=== PATIENT | female | born 1995 | race Caucasian/White ===

== ENCOUNTER 2022-07-09 16:11 | Emergency (ER) | payer OTHER, SELFPAY ==
--- NOTE | ~2022-07-09 | CT_ITS ---
EXAMINATION: CT abdomen pelvis w con DATE: 07/09/2022 17:53 INDICATION: abd pain TECHNIQUE: Computed tomography (CT) of the abdomen and pelvis was performed with 100 mL Omnipaque-350 intravenous contrast. Automated exposure control and iterative reconstruction technique were employe d. The dose-length product was 196.99 mGy-cm. COMPARISON: None. FINDINGS: Lower thorax: Unremarkable Liver: Normal. Biliary/Gallbladder: Gallbladder is normal. No bile duct dilation. Pancreas: No mass or duct dilation. Spleen: Normal. Adrenals:No mass. Kidneys: No mass, stone, or hydronephrosis. The distal ureters were incompletely visualized but there are no calcifications in their expected pathways. GI tract: Distal esophageal and gastric wall edema. No small or large bowel dilation. Normal appendix . Mesentery/Peritoneum: No ascites, mass, or free air. Retroperitoneum: No mass. Pelvis: Pelvic organs are within normal limits. 2.6 cm left ovarian cyst. Soft Tissues: Soft tissues and body wall unremarkable. Bones: No acute osseous finding. IMPRESSION: Esophagitis/gastritis. Otherwise, no acute abdominopelvic process detected. Reviewed, dictated and finalized at location [facility]
--- NOTE | ~2022-07-09 | US_ITS ---
EXAMINATION: US pelvic complete w TV DATE: 07/09/2022 20:04 INDICATION: Lower abd pain TECHNIQUE: Multiple transabdominal sonographic images of the pelvis were obtained. Patient declined t ransvaginal examination. COMPARISON: CT abdomen pelvis, same date. FINDINGS: Uterus: 8.3 x 4.3 x 6.3 cm. Suggestion of arcuate uterus morphology. Endometrial complex measures 19 mm. Right Ovary: 2.4 x 1.6 x 2.1 cm. Vascular flow is present. Left Ovary: 5.0 x 3.3 x 3.8 cm. Vascular flow is present. 2.0 cm simple left ovarian cyst. There is no free fluid in the pelvis. IMPRESSION: Endometrial thickening which may be normal for this patient, or related to endometrial hyperplasia, e ndometrial polyp, and other entities. Consider gynecology referral and short-term pelvic ultrasound f ollow-up early in the menstrual cycle and/or sonohysterography. Simple left ovarian cyst. Otherwise u nremarkable pelvic ultrasound findings. Reviewed, dictated and finalized at location [facility]. [facility] [employer] OPERATOR IMPRESSION: Endometrial thickening which may be normal for this patient, or related to endo metrial hyperplasia, endometrial polyp, and other entities. Consider gynecology referral and short-term pelvic ultrasound follow-up early in the menstrual cyc le and/or sonohysterography. Simple left ovarian cyst. Otherwise unremarkable p elvic ultrasound findings.
[2022-07-09 16:23] VITALS: BP 127/83; PULSE 112; RESP 16; TEMP 36.7; O2SAT 99
[2022-07-09 16:36] LABS: Basophils Percent Auto 0.2 % (0.2-1.2); Hematocrit 38.9 % (37.0-47.0); Immature Granulocyte Absolute 0.08 K/mm3 (0.00-0.031); Immature Granulocyte Percent A 0.4 % (0-0.5); Lymphocytes Absolute Auto 0.64 K/mm3 (0.9-3.2); Lymphocytes Percent Auto 3.6 % (18.3-44.2); Mean Corpuscular HGB Conc 33.4 g/dl (32-36); Mean Corpuscular Hemoglobin 30.6 pg (26-34); Mean Corpuscular Volume 91.5 fl (80-100); Mean Platelet Volume 9.6 fl (7.4-10.4); Monocytes Absolute Auto 0.9 K/mm3 (0.1-0.6); Monocytes Percent Auto 5.2 % (2.6-8.5); Neutrophils Absolute Auto 16.2 K/mm3 (1.3-6.7); Neutrophils Percent Auto 90.6 % (45.5-73.1); Platelet Count Result 215 k/mm3 (150-375); Red Blood Count 4.25 M/mm3 (4.2-5.4); Red Cell Distribution Width 13.2 % (11.5-14.5); White Blood Count 17.9 K/mm3 (4.5-10.0)
[2022-07-09 16:46] LABS: Alanine Aminotransferase 21 U/L (6-35); Albumin Level 4.8 g/dL (3.5-5.1); Alkaline Phosphatase 59 U/L (38-126); Anion Gap 7 mmol/L (8-16); Aspartate Amino Transferase 26 U/L (14-36); Bilirubin,Total 1.7 mg/dL (0.2-1.3); Blood Urea Nitrogen 11 mg/dL (7-17); Calcium 9.3 mg/dL (8.4-10.2); Carbon Dioxide 26 mmol/L (22-30); Chloride 102 mmol/L (98-107); Estimated CRCL calculation 94 ml/min; Estimated Glomerular Filt Rate > 60; Glucose 129 mg/dL (65-110); Lipase 47 U/L (23-300); Potassium 3.4 mmol/L (3.4-5.0); Sodium 135 mmol/L (137-145)
[2022-07-09 16:55] LABS: Add Urine Microscopic? YES; Appearance Urine Clear (Clear); Bilirubin Urine Negative (Negative); Blood Urine Negative (Negative); Color Urine Yellow (Yellow); Glucose Urine UA Negative (Negative); Ketones Urine Trace mg/dL (Negative); Leukocyte Esterase Ur Negative LEU/UL (Negative); Nitrate Urine Negative (Negative); Protein Urine Negative (Negative); Specific Grav Ur 1.015 (1.001-1.035); Urobilinogen Urine 0.2 mg/dL (<2.0)
[2022-07-09 17:05] LABS: Bacteria Urine Trace /hpf; Mucus Urine Rare /lpf; RBC Urine 0-2 /hpf (0-2); Squamous Epithelial Cell Urine Few /hpf (Few)
--- NOTE | 2022-07-09 17:21 | ED.ABDPAIN ---
HPI - Abdominal Pain General Chief Complaint: Abdominal Pain <Chava Núñez DO - Last Filed: 07/09/22 19:00> Stated Complaint: abdominal pain <Chava Núñez DO - Last Filed: 07/09/22 19:00> Time Seen by Provider: 07/09/22 17:16 <Chava Núñez DO - Last Filed: 07/09/22 19:00> Source: RN notes reviewed <Chava Núñez DO - Last Filed: 07/09/22 19:00> History of Present Illness HPI narrative: Patient presents emergency department from home for abdominal pain. Patient states symptoms began last night. The pain is located in the right lower quadrant does not radiate described as sharp and stabbing in nature. Patient states the pain is worse when she hit bumps in the car she states nothing makes the pain better. She states she did take ibuprofen at 230 this morning with minimal relief. She states she has had a low-grade fever up to 100 degrees at home she denies any nausea vomiting diarrhea dysuria or any other symptoms <Chava Núñez DO - Last Filed: 07/09/22 19:00> Related Data Allergies/Adverse Reactions: Allergies Allergy/AdvReac Type Severity Reaction Status Date / Time No Known Allergies Allergy Verified 07/09/22 17:34 <Chava Núñez DO - Last Filed: 07/09/22 19:00> Review of Systems Review of Systems: Gen.: Denies fevers or chills ENT: Denies congestion Respiratory: Denies shortness of breath or cough CV: Denies chest pain or palpitations GI: See HPI Musculoskeletal: Denies back pain or muscle pain Neuro: Denies numbness, tingling, weakness or focal weakness Skin: Denies rash Except as documented, all other systems reviewed and negative <DO Ethan Rueda Last Filed: 07/09/22 19:00> [facility] Past Medical History Medical History: Medical History (Updated 07/09/22 @ 19:00 by Chava Núñez DO) Patient denies significant medical history <Chava Núñez DO - Last Filed: 07/09/22 19:00> Social History Social History: Social History (Updated 07/09/22 @ 17:22 by TA Rueda Smoking status: Never smoker <Chava Núñez DO - Last Filed: 07/09/22 19:00> Exam Narrative: APPEARANCE: No acute distress, nontoxic, resting in bed EYES: EOMI HEENT: Normocephalic, atraumatic, OMM RESPIRATORY: No respiratory distress Clear to auscultation bilaterally with no rhonchi wheezing or rales. CARDIOVASCULAR: Regular rate and rhythm without murmurs rubs or gallops. ABDOMINAL: Soft, soft nondistended tender palpation right lower quadrant no tenderness right upper quadrant and left upper quadrant left lower quadrant no rebound or guarding MUSCULOSKELETAl: Moves all extremities. No clubbing, cyanosis or edema. NEURO: Awake and alert. Following commands, speech normal, no focal deficits SKIN:: Warm, dry. No rashes lesions or abrasions PSYCHIATRIC: Normal affect/mood, <Chava Núñez DO - Last Filed: 07/09/22 19:00> Course Course Emergency Course: Patient states she is not sexually active states that her menstrual cycle is post be started in the next several days she denies any vaginal bleeding or discharge I discussed with the patient with her pain and abnormal CT doing a pelvic exam.. The patient did have some concerns about the exam as she states that any type of speculum exam is very painful to her but she is supposed be seeing her [facility] tomorrow but is willing to attempt the exam I did attempted perform an exam and there was pain with any attempt at speculum exam also attempted a bimanual exam which is also very painful to the patient states that this is normal for her I did not proceed any further with exam secondary to the pain Care turned over to Dr. Clements at shift change awaiting ultrasound results and further disposition <Chava Núñez DO - Last Filed: 07/09/22 19:00> ANNUAL GIVING DIRECTOR/PA Physician Supervision 19:00 - Care assumed from Dr. Núñez. The patient states her pain is better controlled. She is pending ultras
[2022-07-09] MEDS: SODIUM CHLORIDE 0.9% IV 1,000 ML 999 ML IV CONT (17:35)
[2022-07-09] MEDS: KETOROLAC 30 MG/ML VIAL (*BKC) IV PUSH (17:36)
[2022-07-09 17:53] VITALS: O2SAT 100
[2022-07-09 17:54] VITALS: BP 122/98; RESP 18; O2SAT 100
[2022-07-09 18:01] VITALS: BP 118/93; RESP 18; O2SAT 100
[2022-07-09 20:16] VITALS: BP 108/71; PULSE 70; RESP 18; O2SAT 100
[2022-07-09 20:44] VITALS: BP 111/74; PULSE 71; RESP 16; O2SAT 98
== END 2022-07-09 20:45 | disposition home or self-care (01) ==
PROVIDERS: Emergency Medicine; Emergency Provider Preventive Medicine Aerospace Medicine
DX: R10.31 Right lower quadrant pain (principal); K29.70 Gastritis, unspecified, without bleeding; K20.90 Esophagitis, unspecified without bleeding; R93.89 Abnormal findings on diagnostic imaging of other specified body structures; N83.202 Unspecified ovarian cyst, left side
CPT/HCPCS: 36415; 74177; 76830; 76856; 80053; 81001; 81025; 83690; 85025; 96361; 96374; 99284; J1885; J7030; Q9967

== ENCOUNTER 2023-03-02 08:02 | Emergency (ER) | payer OTHER, SELFPAY ==
[2023-03-02 08:21] VITALS: BP 120/70; PULSE 85; RESP 18; TEMP 36.6; O2SAT 100
--- NOTE | 2023-03-02 08:32 | ED.SKABFB ---
HPI - Skin/Abscess/Foreign Bdy General Chief complaint: Animal Bite Stated complaint: cat bite Time Seen by Provider: 03/02/23 08:27 Source: patient and RN notes reviewed Mode of arrival: ambulatory Limitations: no limitations History of Present Illness HPI narrative: Patient presents today with a cat bite to her left forearm. She was bit by her own cat while at the vet's office 2 days ago. Cat is up-to-date on vaccines. Patient is unsure of the last date of her tetanus vaccine. Patient reports some mild tenderness surrounding the puncture wounds. States her symptoms have improved since onset. Related Data Allergies Allergy/AdvReac Type Severity Reaction Status Date / Time No Known Allergies Allergy Verified 03/02/23 08:24 Review of Systems Review of Systems: CONSTITUTIONAL: Denies body aches, fever, chills, or sweats. EYES: Denies visual changes, redness, or discharge. ENT: Denies rhinorrhea, congestion, sore throat, or otalgia. CARDIOVASCULAR: Denies chest pain, palpitations, or edema. RESPIRATORY: Denies cough or dyspnea. GASTROINTESTINAL: Denies abdominal pain, nausea, vomiting, or diarrhea. GENITOURINARY: Denies dysuria or hematuria. SKIN: Denies rash, itching. + cat bite MUSCULOSKELETAL: Denies back pain, joint pain, or myalgia. NEUROLOGIC: Denies headache, numbness, tingling, or weakness. PSYCH: Denies depression or anxiety. [facility] Past Medical History Medical History Patient denies significant medical history Social History Social History Smoking status: Never smoker Comments At time of signature, I have reviewed and agree with nursing past medical, surgical, social and family history unless otherwise noted. Please see nursing chart for further information. There is no relevant family history pertinent to the presenting complaint Exam Narrative: GENERAL: Well-appearing, well-nourished, and in no acute distress. HEAD: Normocephalic, atraumatic. EYES: EOMI. No redness or drainage. Conjunctivae normal. ENT: Mucous membranes pink and moist. NECK: Normal AROM. CHEST: No respiratory distress. EXTREMITIES: Normal range of motion. No edema. SKIN: Warm, dry, no rash. Capillary refill normal. Normal skin turgor. Two small puncture wounds to the left anterior forearm that are surrounded by very mild erythema. They are mildly tender to palpation. No induration or fluctuance noted. Distal sensation intact. Capillary refill. NEURO: No focal deficits. Alert and oriented x3. Gait steady. PSYCH: Normal affect. No signs of depression or anxiety. Course Course Level of Care: Express Care Visit Vital Signs Vital signs: Vital Signs Temperature 97.9 F 03/02/23 08:21 Pulse Rate 85 03/02/23 08:21 Respiratory Rate 18 03/02/23 08:21 Blood Pressure 120/70 03/02/23 08:21 Pulse Oximetry 100 03/02/23 08:21 Oxygen Delivery Room Air 03/02/23 08:21 Temperature 97.9 F 03/02/23 08:21 Pulse Rate 85 03/02/23 08:21 Respiratory Rate 18 03/02/23 08:21 Blood Pressure 120/70 03/02/23 08:21 Pulse Oximetry 100 03/02/23 08:21 Oxygen Delivery Room Air 03/02/23 08:21 Reviewed MDM - Skin/Abscess/Foreign Bdy MDM Narrative Medical decision making narrative: Patient's tetanus vaccine will be updated today. Will place her on a short course of Augmentin to ensure the symptoms do not worsen. Patient agrees with plan. Anticipatory guidance given. Differential Diagnosis Differential diagnosis: Likely abscess of skin or subcutaneous tissue, cellulitis and other (Cat bite) Critical Care Time Critical Care Time Critical Care Time: No Discharge Plan Discharge Clinical Impression: Cat bite Qualifiers: Encounter type: initial encounter Qualified Code(s): W55.01XA - Bitten by cat, initial encounter Patient Disposition: Home, Self-Care Conditi
[2023-03-02] MEDS: TETANUS,DIPHTHERIA,AC PERTUSSIS ADULT (0.5 ML) BOOSTRIX IM (08:38)
== END 2023-03-02 08:43 | disposition home or self-care (01) ==
PROVIDERS: Emergency Provider Nurse Practitioner; PCP Nurse Practitioner
DX: S51.832A Puncture wound without foreign body of left forearm, initial encounter (principal); W55.01XA Bitten by cat, initial encounter; Z23 Encounter for immunization
CPT/HCPCS: 90471; 90715; 99213; G0463